=== PATIENT | female | born 1965 | race Caucasian/White ===

== ENCOUNTER 2020-08-23 10:06 | Outpatient (REF) | payer OTHER, SELFPAY ==
[2020-08-23 11:08] LABS: MANUAL DIFF FLAG NO
[2020-08-23 11:15] LABS: Basophils Percent Auto 0.5 % (0-2); Eosinophils Absolute Auto 0.1 X10*3/uL (0.0-0.4); Eosinophils Percent Auto 1.4 % (0-4); Hemoglobin 13.1 g/dl (12.0-16.0); Imm Gran Abs Auto 0.01 X10*3/uL (0.00-0.03); Imm Gran Pct Auto 0.2 % (0.0-0.4); Lymphocytes Absolute Auto 2.1 X10*3/uL (1.2-4.9); Lymphocytes Percent Auto 35.6 % (20-40); Mean Corpuscular HGB Conc 32.8 g/dl (31.0-35.0); Mean Corpuscular Hemoglobin 31.2 pg (27.0-33.0); Mean Corpuscular Volume 95.2 fL (80-98); Mean Platelet Volume 10.7 fL (9.4-12.3); Monocytes Absolute Auto 0.6 X10*3/uL (0.1-1.2); Monocytes Percent Auto 9.6 % (2-11); Neutrophils Absolute Auto 3.1 X10*3/uL (2.0-8.3); Neutrophils Percent Auto 52.7 % (45-73); Platelet Count 229 X10*3/uL (160-400); Red Cell Distribution Width 12.6 % (11.0-16.0); White Blood Count 5.8 X10*3/uL (4.8-10.8)
[2020-08-23 12:01] LABS: Alanine Aminotransferase 20 U/L (0-31); Anion Gap 12 (12-20); Aspartate Amino Transferase 21 U/L (5-31); Blood Urea Nitrogen 22 mg/dL (9-16); Calcium 8.9 mg/dL (8.4-10.2); Carbon Dioxide 28 mmol/L (22-29); Chloride 106 mmol/L (96-108); Cholesterol 190 mg/dL; Estimated Glomerular Filt Rate > 60; Glucose Fasting 86 mg/dL (60-99); HDL Cholesterol 70 mg/dL; LDL Cholesterol Calculated 110 mg/dl; Potassium 4.6 mmol/L (3.3-5.1); Sodium 141 mmol/L (135-145); TSH reflex Free T4 0.83 uIU/mL (0.32-4.0); Triglycerides 54 mg/dL; Vitamin D 25-OH Total 46.2 ng/mL (>30)
== END 2020-08-23 10:07 | disposition home or self-care (01) ==
LOC: HO.HMGCLDS 10:06
PROVIDERS: PCP Internal Medicine; Visit Provider Internal Medicine
DX: Z00.01 Encounter for general adult medical examination with abnormal findings (principal); I10 Essential (primary) hypertension
CPT/HCPCS: 36415; 80048; 80061; 82306; 84443; 84450; 84460; 85025

== ENCOUNTER 2021-01-28 08:19 | Outpatient (REF) | payer OTHER, SELFPAY ==
--- NOTE | ~2021-01-28 | MM_ITS ---
EXAMINATION: MM SCREENING DIGITAL BREAST TOMOSYNTHESIS, BILATERAL CLINICAL INFORMATION: Due for yearly. 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 Clear margins. 2 sentinel nodes negative for metastatic carcinoma. Routine screening per referrer request. COMPARISON: Mammography: 01/23/2020, 11/10/2018, 09/14/2018, 09/07/2018, 09/02/2018, 09/01/2017 TECHNIQUE: Digital breast tomosynthesis is performed in both the craniocaudal and mediolateral oblique views along with computer detection (CAD). Synthesized 2D images are generated from the tomosynthesis. Additional right MLO and bilateral exaggerated CC views are provided. FINDINGS: The breasts are heterogeneously dense, which may obscure small masses (ACR BI-RADS breast composition Category c). Minor post therapy changes right breast with reduced breast size and scarring are stable. The breasts show no interval mass or architectural abnormality. Again, there are multiple left breast calcifications of similar number and distribution. The remaining right breast calcifications are also stable. The axilla and skin contours are unremarkable. No significant changes. MM/MM tomosynthesis screening BI IMPRESSION: There are no significant changes from prior study. Post therapy changes right breast. ASSESSMENT: BI-RADS 2: Benign RECOMMENDATION: Routine annual mammography screening. This patient's information was entered into a reminder system with a target due date for their next mammogram.
== END 2021-01-28 08:20 | disposition home or self-care (01) ==
LOC: HO.MAMMO 08:19
PROVIDERS: Visit Provider Internal Medicine Medical Oncology
DX: Z12.31 Encounter for screening mammogram for malignant neoplasm of breast (principal)
CPT/HCPCS: 77063; 77067

== ENCOUNTER → 2021-12-23 13:50 | Outpatient (BNVA) | payer OTHER, SELFPAY | PROVIDERS: PCP Internal Medicine; Visit Provider Nurse Practitioner Family | DX: Z01.818 Encounter for other preprocedural examination (principal) | CPT/HCPCS: 99202 ==

== ENCOUNTER 2022-01-29 09:26 | Outpatient (REF) | payer OTHER, SELFPAY ==
--- NOTE | ~2022-01-29 | MM_ITS ---
EXAMINATION: MM SCREENING DIGITAL BREAST TOMOSYNTHESIS, BILATERAL CLINICAL INFORMATION: Screening. Asymptomatic. Right lumpectomy for high-grade DCIS, 11/10/2018. COMPARISON: Mammography: 01/28/2021, 01/23/2020, 11/10/2018, 09/14/2018, 09/07/2018, 09/02/2018 TECHNIQUE: Digital breast tomosynthesis is performed in both the craniocaudal and mediolateral oblique views along with computer-aided detection (CAD). Synthesized 2D images are generated from the tomosynthesis. Additional right CC view is provided. FINDINGS: The breasts are heterogeneously dense, which may obscure small masses (ACR BI-RADS breast composition Category c). There are minor post therapy changes again noted on the right similar to prior study. Neither breast shows interval mass or architectural abnormality or developing density. There are no abnormal calcifications. Residual calcifications on right and similar appearing calcifications left predominantly regional upper outer are similar to prior studies. The axilla are unremarkable. No significant changes. MM/MM tomosynthesis screening BI IMPRESSION: No mammographic evidence of malignancy. ASSESSMENT: BI-RADS 2: Benign RECOMMENDATION: Routine annual mammography screening. This patient's information was entered into a reminder system with a target due date for their next mammogram.
== END 2022-01-29 09:27 | disposition home or self-care (01) ==
LOC: HO.MAMMO 09:26
PROVIDERS: PCP Internal Medicine; Visit Provider Internal Medicine
DX: Z12.31 Encounter for screening mammogram for malignant neoplasm of breast (principal)
CPT/HCPCS: 77063; 77067

== ENCOUNTER 2022-07-16 07:11 | Day surgery (SDC) | payer OTHER, SELFPAY ==
--- NOTE | 2022-07-15 13:13 | HO.ANESPROP2 ---
Documented by User: Jenny Hale NP 07/15/22 13:14 HPI - Anesthesia Eval Consult details Narrative: 57yo F for Colonoscopy PMF Active Problems Active Problems: All Active Problems (Updated 02/12/22 @ 17:[address] [facility]) Chronic dryness of both eyes (Acute) Family history of colon cancer in father (Acute) Allergic rhinitis (Acute) Allergies (Acute) Serous otitis media (Acute) Ear pain (Acute) Right otitis media (Acute) Ductal carcinoma in situ (DCIS) of right breast (Acute) Past Medical History Medical History (Updated 02/12/22 @ 17:[address] [facility]) Allergic rhinitis Ductal carcinoma in situ (DCIS) of right breast Family history of colon cancer in father Family History Family History Father History of CVA (cerebrovascular accident) Stroke Mother No problems noted. Maternal Grandmother Breast cancer Maternal Aunt Breast cancer Brother No problems noted. Brother No problems noted. Brother No problems noted. Sister No problems noted. Surgical History Surgical History History of bunionectomy History of colonoscopy History of eye surgery History of hernia repair History of lumpectomy of left breast History of tonsillectomy Status post dilation and curettage Social History Social History Housing: House Alcohol intake: current Alcohol intake frequency: holidays/special occasions only Patient Tobacco Use Status: Former Tobacco user e-Cigarette/Vaping Use: Never Used Second Hand Smoke Exposure: No Are you DNR?: No Advance Directives: No Advance Directives Information Provided: Yes Nutrition Risks: No Nutritional Risk service: Yes Current occupational status: employed and retired Current occupation: [employer] Cognitive needs: No Hearing needs: No Vision needs: Yes (reading glasses) Meds Allergies Allergy/AdvReac Type Severity Reaction Status Date / Time Penicillins [PENICILLINS] Allergy Severe ANAPHYLAXIS Verified 07/13/22 13:21 bacitracin [From NEOSPORIN] Allergy Intermediate RASH Verified 07/13/22 13:21 benzalkonium chloride Allergy Intermediate RASH Verified 07/13/22 13:21 [From NEOSPORIN] gramicidin D [From NEOSPORIN] Allergy Intermediate RASH Verified 07/13/22 13:21 polymyxin B [From NEOSPORIN] Allergy Intermediate RASH Verified 07/13/22 13:21 strawberry [STRAWBERRY] Allergy Intermediate LIP Verified 07/13/22 13:21 TINGLING, HIVES tea tree [TEA TREE] Allergy Intermediate RASH Verified 07/13/22 13:21 cephalexin [Keflex] Allergy Unknown dizziness Verified 07/13/22 13:21 Neosporin Allergy Unknown rash/bumps Verified 07/13/22 13:21 lactose [LACTOSE] AdvReac Severe DIARRHEA Verified 07/13/22 13:21 BANDAIDS Allergy Severe RASH Uncoded 07/13/22 13:21 Environmental Allergy Mild Cough,sneezing Uncoded 07/13/22 13:21 runny nose Home Medications Medication Instructions Recorded Confirmed Last Taken Type tamoxifen 20 mg tablet 20 mg PO DAILY 06/04/20 07/13/22 07/15/22 History fexofenadine 30 mg tablet 1 mg PO DAILY 07/16/22 07/16/22 07/15/22 History Exam Exam Date and Time: July 15, 2022 1313 Assessment and Plan Assessment Anesthesia Assessment: Chart Reviewed Documented by User: Megan Anne MD 07/16/22 08:09 [facility] Past Medical History Medical History (Updated 02/12/22 @ 17:[address] [facility]) Allergic rhinitis Ductal carcinoma in situ (DCIS) of right breast Family history of colon cancer in father Family History Family History Father History of CVA (cerebrovascular accident) Stroke Mother No problems noted. Maternal Grandmother Breast cancer Maternal Aunt Breast cancer Brother No problems noted. Brother No problems noted. Brother No problems noted. Sister No problems noted. Family history of problems with anesthesia: No Surgical History Surgical History History of bunionectomy History of colonoscopy History of eye surgery History of hernia repair History of lumpectomy of left breast History of tonsillectomy Status post dilation and curettage History of Problems with Anesthesia: No Social History Social History Housing: House Alcohol intake: current Alcohol intake frequency: holidays/special occasions only Patient Tobacco Use Status: Former Tobacco user e-Cigarette/Vaping Use: Never Used Second Hand Smoke Exposure: No Are you DNR?: No Advance Directives: No Advance Directives Information Provided: Yes Nutrition Risks: No Nutritional Risk service: Yes Current occupational status: employed and retired Current occupation: [employer] Cognitive needs: No Hearing needs: No Vision needs: Yes (reading glasses) Meds Allergies Allergy/AdvReac Type Severity Reaction Status Date / Time Penicillins [PENICILLINS] Allergy Severe ANAPHYLAXIS Verified 07/13/22 13:21 bacitracin [From NEOSPORIN] Allergy Intermediate RASH Verified 07/13/22 13:21 benzalkonium chloride Allergy Intermediate RASH Verified 07/13/22 13:21 [From NEOSPORIN] gramicidin D [From NEOSPORIN] Allergy Intermediate RASH Verified 07/13/22 13:21 polymyxin B [From NEOSPORIN] Allergy Intermediate RASH Verified 07/13/22 13:21 strawberry [STRAWBERRY] Allergy Intermediate LIP Verified 07/13/22 13:21 TINGLING, HIVES tea tree [TEA TREE] Allergy Intermediate RASH Verified 07/13/22 13:21 cephalexin [Keflex] Allergy Unknown dizziness Verified 07/13/22 13:21 Neosporin Allergy Unknown rash/bumps Verified 07/13/22 13:21 lactose [LACTOSE] AdvReac Severe DIARRHEA Verified 07/13/22 13:21 BANDAIDS Allergy Severe RASH Uncoded 07/13/22 13:21 Environmental Allergy Mild Cough,sneezing Uncoded 07/13/22 13:21 runny nose Home Medications Medication Instructions Recorded Confirmed Last Taken Type tamoxifen 20 mg tablet 20 mg PO DAILY 06/04/20 07/13/22 07/15/22 History fexofenadine 30 mg tablet 1 mg PO DAILY 07/16/22 07/16/22 07/15/22 History Exam Airway Mallampati Class: II TM Dist: >3cm Neck ROM: Full Heart: rr Lungs: cta Assessment and Plan Final Anesthetic Review Family History of Problems with Anesthesia: No History of Problems with Anesthesia: No NPO: Yes ASA Class: I and II Final Preanesthetic Review: No Changes in Pt Med Stat, Meds/Allgs Chart Reviewed, Consent Obtained/Reviewed and Anes Risks/Benef Reviewed Patient Risk: Low Procedure Risk: Low Anesthetic Plan Anesthetic Plan: MAC: and Agree w/ Assess. and Plan
[2022-07-16 07:09] VITALS: BMI 21.4
[2022-07-16 07:13] VITALS: BP 106/68; PULSE 74; RESP 18; TEMP 36.6; O2SAT 98
[2022-07-16] MEDS: Lactated Ringers 1,000 ML 100 ML IVCONT (07:39)
--- NOTE | 2022-07-16 08:37 | MHC.SHP ---
Pre-Procedural Eval Section A Date of Service: 07/16/22 Section B Chief Complaint: screening Details of Present Illness: siblings with colon polyps Relevant Family History (Specify if Yes): Yes Relevant Social History: None Present Medications: see Short Stay Collaborative assessment Medical History: Significant History (Allergic rhinitis Ductal carcinoma in situ (DCIS) of right breast) History of Previous Operations: Relevant previous surgery/procedure and date(s) (History of bunionectomy History of colonoscopy History of eye surgery History of hernia repair History of lumpectomy of left breast History of tonsillectomy Status post dilation and curettage) Allergies: Allergies Allergy/AdvReac Type Severity Reaction Status Date / Time Penicillins [PENICILLINS] Allergy Severe ANAPHYLAXIS Verified 07/13/22 13:21 bacitracin [From NEOSPORIN] Allergy Intermediate RASH Verified 07/13/22 13:21 benzalkonium chloride Allergy Intermediate RASH Verified 07/13/22 13:21 [From NEOSPORIN] gramicidin D [From NEOSPORIN] Allergy Intermediate RASH Verified 07/13/22 13:21 polymyxin B [From NEOSPORIN] Allergy Intermediate RASH Verified 07/13/22 13:21 strawberry [STRAWBERRY] Allergy Intermediate LIP Verified 07/13/22 13:21 TINGLING, HIVES tea tree [TEA TREE] Allergy Intermediate RASH Verified 07/13/22 13:21 cephalexin [Keflex] Allergy Unknown dizziness Verified 07/13/22 13:21 Neosporin Allergy Unknown rash/bumps Verified 07/13/22 13:21 lactose [LACTOSE] AdvReac Severe DIARRHEA Verified 07/13/22 13:21 BANDAIDS Allergy Severe RASH Uncoded 07/13/22 13:21 Environmental Allergy Mild Cough,sneezing Uncoded 07/13/22 13:21 runny nose Review of Systems Sugical H&P ROS: Negative: Constitution, Cardiovascular, Respiratory, Neurological, Psychiatric, Hem-Onc, Allergic/Immunologic, Gastrointestinal, Genitourinary, Musculoskeletal, Integumentary, Endocrine and Eyes/Ears/Nose/Throat Exam Surgical H&P Exam: Normal: HEENT, Normal: Heart, Normal: Lungs, Normal: Extremities, Normal: Abdomen, Normal: Skin and Normal: Neurological Plan Diagnosis/Plan: Unchanged I have reviewed the history and physical and performed a pertinent physical examination on my patient. No changes have occurred unless specified. Time Spent With Patient Time: Total time managing care of this patient today ____ minutes.
--- NOTE | 2022-07-16 08:47 | P.OP_ITS ---
Operative Note Operative Note Date of Service: 07/16/22 Narrative: Operative Information Procedure Description: Colonoscopy Indication: screening Anesthesia: MAC COLONOSCOPY Instrument: Olympus variable stiffness pediatric scope 190L Colonoscopy Monitoring: Vital signs and clinical assessment, continuous EKG monitoring, Pulse oximetry, Carbon Dioxide monitoring and blood pressure monitoring were done throughout the procedure. Colon withdrawal time was 9 minutes. Procedure: The patient was placed in the left lateral decubitis position and pre-procedure medications were administered. After a digital rectal examination of the ano-rectum, the video colonoscope was inserted into the rectum and advanced through the colon to the cecum/TI. The colonoscope was slowly withdrawn in a retrograde panoramic fashion and the colon mucosa was carefully examined including a retroflexed view of the rectum. Findings and interventions are described below. Procedure Difficulty: moderate due to redundant colon, tortuous Findings: Terminal Ileum-normal Right sided colon retroflexion- normal Cecum:normal Ascending Colon: normal Transverse Colon -normal Descending Colon:normal Sigmoid Colon: normal Rectum: Retroflexion with small internal hemorrhoids, grade I Anorectum - normal Colon preparation: [place] Bowel Preparation Scale Right colon; 2 Transverse colon: 3 Left colon; 3 (0 = Unprepared colon segment with mucosa not seen due to solid stool that cannot be cleared. 1 = Portion of mucosa of the colon segment seen, but other areas of the colon segment not well seen due to staining, residual stool and/or opaque liquid. 2 = Minor amount of residual staining, small fragments of stool and/or opaque liquid, but mucosa of colon segment seen well. 3 = Entire mucosa of colon segment seen well with no residual staining, small fragments of stool or opaque liquid) Impression and Post Procedure Diagnosis: internal hemorrhoids tortuous slighty redundant colon Plan: High fiber diet leaflet Avoid straining at stool, epsom salts and sitz bath, anusol supps or cream Repeat Colonoscopy in 10 years or earlier if clinically indicated Above findings were reviewed with the patient and relevant handouts were provided if indicated.
[2022-07-16 09:18] VITALS: BP 88/49; PULSE 64; RESP 16; TEMP 36.4; O2SAT 100
[2022-07-16 09:23] VITALS: BP 89/55
[2022-07-16 09:33] VITALS: BP 93/53; PULSE 65; RESP 16; O2SAT 100
[2022-07-16 09:48] VITALS: BP 100/58; PULSE 58; RESP 18; TEMP 36.8; O2SAT 99
== END 2022-07-16 10:20 ==
LOC: HO.SSS 07:11
PROVIDERS: PCP Internal Medicine; Visit Provider Internal Medicine Gastroenterology
PROC: 0DJD8ZZ Inspection of Lower Intestinal Tract, Via Natural or Artificial Opening Endoscopic (ICD-10-PCS; CPT 45378; principal; 2022-07-16 08:20)
DX: Z12.11 Encounter for screening for malignant neoplasm of colon (principal); Z83.71 Family history of colonic polyps; K64.0 First degree hemorrhoids; D05.11 Intraductal carcinoma in situ of right breast; J30.9 Allergic rhinitis, unspecified; Z79.899 Other long term (current) drug therapy; Z79.810 Long term (current) use of selective estrogen receptor modulators (SERMs); Z88.0 Allergy status to penicillin; Z88.1 Allergy status to other antibiotic agents; Z91.040 Latex allergy status; Z87.891 Personal history of nicotine dependence
CPT/HCPCS: 45378; J2405

== ENCOUNTER → 2022-07-29 10:50 | Outpatient (BNVA) | payer OTHER, SELFPAY | PROVIDERS: PCP Internal Medicine; Visit Provider Nurse Practitioner Family | DX: Z98.890 Other specified postprocedural states (principal) | CPT/HCPCS: 99212 ==

== ENCOUNTER 2022-08-28 08:03 | Outpatient (AMB) | payer OTHER, SELFPAY ==
[2022-08-28 08:07] VITALS: BP 94/60; PULSE 76; O2SAT 100; BMI 22.3
--- NOTE | 2022-08-28 08:07 | A.OFFPC_ITS ---
Vital Signs 08/28/22 08:07 Height 5 ft 4 in Weight 130 lb BMI 22.3 BP 94/60 Blood Pressure Location Lt brachial Position Sitting Pulse 76 Pulse Source Pulse Oximeter Pulse Oximetry (%) 100 Oxygen Delivery Method Room Air Intake Visit Reasons: Annual PE Intake Note: Pt is here today for PE Allergies Penicillins [PENICILLINS] Allergy (Severe, Verified 08/28/22 08:15) ANAPHYLAXIS bacitracin [From NEOSPORIN] Allergy (Intermediate, Verified 08/28/22 08:15) RASH benzalkonium chloride [From NEOSPORIN] Allergy (Intermediate, Verified 08/28/22 08:15) RASH gramicidin D [From NEOSPORIN] Allergy (Intermediate, Verified 08/28/22 08:15) RASH polymyxin B [From NEOSPORIN] Allergy (Intermediate, Verified 08/28/22 08:15) RASH strawberry [STRAWBERRY] Allergy (Intermediate, Verified 08/28/22 08:15) LIP TINGLING, HIVES tea tree [TEA TREE] Allergy (Intermediate, Verified 08/28/22 08:15) RASH cephalexin [Keflex] Allergy (Unknown, Verified 08/28/22 08:15) dizziness neomycin [From Neosporin ([id number])] Allergy (Unknown, Verified 08/28/22 08:15) Rash, bumps lactose [LACTOSE] Adverse Reaction (Severe, Verified 08/28/22 08:15) DIARRHEA BANDAIDS Allergy (Severe, Uncoded 08/28/22 08:15) RASH Environmental Allergy (Mild, Uncoded 08/28/22 08:15) Cough,sneezing runny nose Medication List - Last Reconciled 08/28/22 by Juliette Altman MD cholecalciferol (vitamin D3) 25 mcg PO DAILY fexofenadine 1 mg PO DAILY meloxicam 15 mg PO DAILY multivitamin 1 tab PO DAILY tamoxifen 20 mg PO DAILY zolpidem 10 mg PO BEDTIME PRN Tobacco use date assessed: 08/28/22 HPI Annual PE HPI Details 57 year-old lady with history of DCIS right breast, 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 She is up-to-date with her screening mammogram, due again in January 2023, up-to-date with her cervical cancer screening gets yearly with Dr. Yaya Estrada, last done 01/2022. She had a repeat screening colonoscopy done 07/16/[address] Rivera, which showed normal findings,? but due to positive family history in first-degree relative, she is due for have it repeated in 7 years.? ?She had fasting labs done at the [facility] 06/04/2022 showed normal fasting glucose, normal fasting lipids normal hemoglobin with a slightly low hematocrit, and normal normal UA. She had a bone density scan done 08/19/2021 which showed normal findings Was recently seen at [facility] by Dr. 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 Up-to-date with all her vaccinations. [facility] Medical History (Updated 08/28/22 @ 09:11 by Juliette Altman MD) Allergic rhinitis Allergies Arthritis of hand Ductal carcinoma in situ (DCIS) of right breast History of ductal carcinoma in situ of breast Serous otitis media Surgical History (Updated 08/28/22 @ 09:00 by Juliette Altman MD) History of bunionectomy History of colonoscopy History of eye surgery History of hernia repair History of lumpectomy of left breast History of tonsillectomy Hx of LASIK Status post dilation and curettage Family History Father History of CVA (cerebrovascular accident) Stroke Mother No problems noted. Maternal Grandmother Breast cancer Maternal Aunt Breast cancer Brother No problems noted. Brother No problems noted. Brother No problems noted. Sister No problems noted. Social History Housing: House Alcohol intake: current Alcohol intake frequency: holidays/special occasions only Patient Tobacco Use Status: Former Tobacco user e-Cigarette/Vaping Use: Never Used Second Hand Smoke Exposure: No service: Yes Current occupational status: employed and retired Current occupation: [employer] Cognitive needs: No Hearing needs: No Vision needs: Yes (reading glasses) Questionnaire PHQ-9 Over the last 2 weeks, how often have you been bothered by any of the following problems? 1. Little interest or pleasure in doing things: not at all 2. Feeling down, depressed, or hopeless: not at all 3. Trouble falling or staying asleep, or sleeping too much: several days 4. Feeling tired or having little energy: not at all 5. Poor appetite or overeating: not at all 6. Feeling bad about yourself - or that you are a failure or have let yourself or your family down: not at all 7. Trouble concentrating on things, such as reading the newspaper or watching television: not at all 8. Moving or speaking so slowly that other people could have noticed. Or the opposite - being so fidgety or restless that you have been moving around a lot more than usual: not at all 9. Thoughts that you would be better off or of hurting yourself in some way: not at all Total score: 1 Depression Screening Interpretation: Negative [id number] - PHQ-9 Billing: Yes Source: Developed by Drs. Steven Santiago, Bell Keating, Rowdy Cuello and colleagues, with an educational emma from [employer]. Thrive Questionnaire Declines Thrive assessment: No Date Thrive assessed: 08/28/22 I am a: Patient What is your living situation today?: I have a steady place to live Within the past 12 months, did the food you bought not last and you didn't have the money to get more?: Never true Within the past 12 months, did you worry whether your food would run out before you got money to buy more?: Never true Do you have trouble paying for medicines?: No Do you have trouble getting transportation to medical appointments?: No Do you have trouble paying your heating and electricity bill?: No Do you have trouble taking care of your child, family member or friend?: No Do you have trouble with day-to-day activities such as bathing, preparing meals, shopping, managing finances, etc.?: No Are you currently unemployed and looking for a job?: No Are you interested in more education?: No AUDIT C Alcohol Use Questionnaire (AUDIT-C) 1. How often do you have a drink containing alcohol?: Monthly or less 2. How many drinks containing alcohol do you have on a typical day when you are drinking?: 1 or 2 3. How often do you have six or more drinks on one occasion?: Never Total Score: 1 BERNY-7 AMB Questionnaire BERNY-7 Date BERNY - 7 assessed: 08/28/22 Feeling nervous, anxious, or on edge: 0 = Not at all Not being able to stop or control worryin = Not at all Worrying too much about different things: 0 = Not at all Trouble relaxin = Several days Being so restless that it is hard to sit still: 0 = Not at all Becoming easily annoyed or irritable: 1 = Several days Feeling afraid as if something awful might happen: 0 = Not at all Total BERNY-7 score (0-4 normal; 5-9 mild; 10-14 moderate; 15-21 severe): 2 Source: Developed by Drs. Steven Santiago, Bell Keating, Rowdy Cuello and colleagues, with an educational emma from [employer]. BERNY-7 Assessment Billing BERNY-7 Assessment Tool: BRENY-7 Assessment 18784 Review of Systems Const Denies chills, Denies fatigue, Denies fever(s), Denies headache(s) and Denies weakness Eyes Reports no additional complaints and Denies change in vision ENT Denies vertigo, Denies dizziness, Denies ear discharge, Denies otalgia and Denies headache(s) Card Denies chest pain, Denies lightheadedness, Denies dyspnea and Denies other (Palpitations) Resp Denies cough, Denies dyspnea, Denies wheezing and Denies other ( shortness of breath) GI Denies abdominal pain, Denies melena, Denies bloating, Denies hematochezia, Denies dyspepsia and Denies heartburn Reports change in libido, Denies difficulty voiding, Denies genital pruritis, Reports hot flashes, Denies urinary incontinence, Denies urinary hesitancy, Denies urinary urgency and Reports vaginal dryness Musc Denies back pain, Denies joint swelling, Denies numbness and Denies tingling Skin/Breast Reports breast pain (sharp pain around =left nipple inner upper outer , ? trauma), Denies dry skin and Denies rash Neuro Denies vertigo, Denies dizziness, Denies headache(s), Denies numbness, Denies tingling, Denies paresthesias and Denies weakness Psych Denies anxiety, Reports change in libido and Denies depression Endo Reports change in libido and Denies fatigue Phil/Lymph Denies easy bleeding and Denies easy bruising Aller/Immun Denies wheezing Physical exam (Primary Care) Vital Signs: Last Vital Signs Pulse 76 08/28/22 08:07 BP 94/60 08/28/22 08:07 Pulse Ox 100 08/28/22 08:07 Oxygen Delivery Method Room Air 08/28/22 08:07 BMI result Body Mass Index 22.3 Tobacco/Smoking Status: Tobacco use Status Tobacco use date assessed 08/28/22 08/28/22 08:13 Patient Tobacco Use Status Former Tobacco user 08/28/22 08:13 e-Cigarette/Vaping Use Never Used 08/28/22 08:13 PHQ-9: PHQ-9 Score PHQ-9: Total score 1 08/28/22 09:04 Depression Screening Interpretation: Negative Thrive Assessment: Date of Thrive Assessment Date Thrive assessed 08/28/22 08/28/22 08:16 Const General: healthy appearing, comfortable and no acute distress Nutritional Appearance: average body habitus Orientation/consciousness: patient oriented x3 Limitations: no limitations HENMT Head: Yes normocephalic and Yes atraumatic Ears: hearing grossly normal bilaterally, TM's normal bilaterally and EAC's normal General nose exam: Normal external nose present Face and sinus: Yes face symmetric Mouth: Normal oral and palatal mucosa present and moist mucous membranes Eyes General: appearance normal, both eyes and all related structures Neck Neck: Yes full ROM, Yes no lymphadenopathy and Yes supple Thyroid: Thyroid normal Chest Other: Had slight tenderness on palpation over the upper outer aspect of left areola, no definite lump palpated, no nipple discharge Chest palpation & inspection: normal inspection of the chest Resp Effort & Inspection: normal respiratory effort and able to speak in complete sentences Auscultation: clear to auscultation bilaterally Cardio Rate: regular rate Rhythm: regular rhythm Heart sounds: S1 normal heart sound present and S2 normal heart sound present GI Inspection: Yes normal to inspection Auscultation: normal bowel sounds Other: sees [facility] for yearly pap /pelvic exam General: Yes no CVA tenderness Back/Spine/Pelvis Back: no CVA tenderness and No back tenderness Skin General skin exam: no rashes or lesions noted Neuro General: patient oriented x3, gait normal, tone normal, moves all extremities, no focal motor deficits and CN's II-XI intact bilaterally Extrem General: Yes full ROM, Yes no joint enlargement and Yes no pedal edema Psych Appearance: grossly normal and well kempt Mental Status: mental status grossly normal Speech and movement: Normal speech and movement present Affect: normal affect Attitude: cooperative Thought process: Normal thought process present Thought content: Normal thought content present Assessment and Plan Assessment & Plan (1) Arthritis of hand: Comment: bilateral STT and 1st CMC arthritis- ff'd by Dr Morejon at [facility] Code(s): M19.049 - Primary osteoarthritis, unspecified hand (2) History of ductal carcinoma in situ of breast: Code(s): Z86.000 - Personal history of in-situ neoplasm of breast (3) Annual visit for general adult medical examination with abnormal findings: Code(s): Z00.01 - Encounter for general adult medical examination with abnormal findings (4) Breast pain, left: Code(s): N64.4 - Mastodynia Coding Level of Care Code Est Pt Prev Care 40-64y([id number]) Diagnoses Arthritis of hand M19.049 History of ductal carcinoma in situ of breast Z86.000 Annual visit for general adult medical examination with abnormal findings Z00.01 Breast pain, left N64.4 Additional Codes BERNY-7 Assessment Billing - BERNY-7 Assessment Tool: BERNY-7 Assessment 40239 ([id number])
== END 2022-08-28 09:42 | disposition home or self-care (01) ==
LOC: HO.HMGC 08:04
PROVIDERS: PCP Internal Medicine; Visit Provider Internal Medicine
DX: M19.049 Primary osteoarthritis, unspecified hand (principal); Z86.000 Personal history of in-situ neoplasm of breast; Z00.01 Encounter for general adult medical examination with abnormal findings; N64.4 Mastodynia
CPT/HCPCS: 99499

== ENCOUNTER 2023-02-03 09:19 | Outpatient (REF) | payer OTHER, SELFPAY ==
--- NOTE | ~2023-02-03 | MM_ITS ---
EXAMINATION: MM SCREENING DIGITAL BREAST TOMOSYNTHESIS, BILATERAL CLINICAL INFORMATION: Screening. Asymptomatic. Patient has a history of right breast DCIS diagnosed in 2019. COMPARISON: Mammography: This study is compared with prior exams dating back to 2019. TECHNIQUE: Digital breast tomosynthesis is performed in both the craniocaudal and mediolateral oblique views along with computer-aided detection (CAD). Synthesized 2D images are generated from the tomosynthesis. FINDINGS: The breasts are heterogeneously dense, which may obscure small masses (ACR BI-RADS breast composition Category c). There are no significant masses, abnormal calcifications, or other abnormalities. There are bilateral, unchanged, probably T8, benign calcifications in each breast. MM/MM tomosynthesis screening BI IMPRESSION: No mammographic evidence of malignancy. ASSESSMENT: BI-RADS BI-RADS 2 - Benign Findings RECOMMENDATION: Routine annual mammography screening. 1 year F/U This examination should not preclude the clinical evaluation of a suspicious palpable abnormality. This patient's information was entered into a reminder system with a target due date for their next mammogram.
== END 2023-02-03 09:20 | disposition home or self-care (01) ==
LOC: HO.MAMMO 09:19
PROVIDERS: PCP Internal Medicine; Visit Provider Internal Medicine
DX: Z12.31 Encounter for screening mammogram for malignant neoplasm of breast (principal)
CPT/HCPCS: 77063; 77067

== ENCOUNTER → 2023-02-03 09:30 | Outpatient (BNV) | payer OTHER, SELFPAY | PROVIDERS: PCP Internal Medicine; Visit Provider Radiology Diagnostic Radiology | DX: Z12.31 Encounter for screening mammogram for malignant neoplasm of breast (principal) | CPT/HCPCS: 77063; 77067 ==

== ENCOUNTER 2023-09-02 08:56 | Outpatient (AMB) | payer OTHER, SELFPAY ==
--- NOTE | 2023-09-02 08:59 | A.OFFPC_ITS ---
Vital Signs 09/02/23 09:19 Height 5 ft 4 in Weight 131 lb 8 oz BMI 22.6 BP 112/66 Blood Pressure Location Rt brachial Position Sitting Pulse 74 Pulse Source Pulse Oximeter Pulse Oximetry (%) 98 Oxygen Delivery Method Room Air Intake Visit Reasons: PE Intake Note: Pt is here today for her Annual Physical. Allergies Penicillins [PENICILLINS] Allergy (Severe, Verified 09/02/23 09:28) ANAPHYLAXIS bacitracin [From NEOSPORIN] Allergy (Intermediate, Verified 09/02/23 09:28) RASH benzalkonium chloride [From NEOSPORIN] Allergy (Intermediate, Verified 09/02/23 09:28) RASH gramicidin D [From NEOSPORIN] Allergy (Intermediate, Verified 09/02/23 09:28) RASH polymyxin B [From NEOSPORIN] Allergy (Intermediate, Verified 09/02/23 09:28) RASH strawberry [STRAWBERRY] Allergy (Intermediate, Verified 09/02/23 09:28) LIP TINGLING, HIVES tea tree [TEA TREE] Allergy (Intermediate, Verified 09/02/23 09:28) RASH cephalexin [Keflex] Allergy (Unknown, Verified 09/02/23 09:28) dizziness neomycin [From Neosporin ([id number])] Allergy (Unknown, Verified 09/02/23 09:28) Rash, bumps lactose [LACTOSE] Adverse Reaction (Severe, Verified 09/02/23 09:28) DIARRHEA BANDAIDS Allergy (Severe, Uncoded 09/02/23 09:28) RASH Environmental Allergy (Mild, Uncoded 09/02/23 09:28) Cough,sneezing runny nose Medication List - Last Reconciled 09/02/23 by Juliette Altman MD azelastine intranasal meloxicam 15 mg PO DAILY multivitamin 1 tab PO DAILY tamoxifen 20 mg PO DAILY varenicline (Tyrvaya) 1 spray intranasal Q12H zolpidem 10 mg PO BEDTIME PRN Tobacco use date assessed: 09/02/23 Dental Screening Dental Screen Date: 09/02/23 Did you have a dental visit in the last 12 months?: Yes Did you have a dental problem in the last 6 months where you did not have access to dental care?: No Was dental information given to patient?: Patient has dentist HPI PE HPI Details 58-year-old lady here today for physical exam. She history of ductal carcinoma in Situ of right breast, currently on tamoxifen, has allergic rhinitis, and chronic dry eyes as well as arthritis in both hands. She was given sample by her line dancer of Tryvaya nasal solution to spray in nostril every 12 hours for control of dry eye syndrome which has been helping She is updated with her screening colonoscopies, sees Dr. Rivera , in 2022, normal per patient due again in 2032. Sees Dr[address] Estrada for her Pap and pelvic exam, done in 2021 with normal findings, has hot flashes for which he takes nature's Way Estrosoy as recommended by her ditch digger, which has been helping. Has occasional problems sleeping takes zolpidem as needed. [facility] Medical History (Updated 09/03/23 @ 00:17 by Juliette Altman MD) Insomnia Vasomotor symptoms due to menopause History of ductal carcinoma in situ of breast Arthritis of hand Allergic rhinitis Allergies Serous otitis media Ductal carcinoma in situ (DCIS) of right breast Surgical History Hx of LASIK Status post dilation and curettage History of lumpectomy of left breast History of tonsillectomy History of bunionectomy History of hernia repair History of eye surgery History of colonoscopy Family History Father History of CVA (cerebrovascular accident) Stroke Mother No problems noted. Maternal Grandmother Breast cancer Maternal Aunt Breast cancer Brother No problems noted. Brother No problems noted. Brother No problems noted. Sister No problems noted. Social History Housing: House Alcohol intake: current Alcohol intake frequency: holidays/special occasions only Patient Tobacco Use Status: Former Tobacco user e-Cigarette/Vaping Use: Never Used Second Hand Smoke Exposure: No service: Yes Current occupational status: employed and retired Current occupation: [employer] Cognitive needs: No Hearing needs: No Vision needs: Yes (reading glasses) Questionnaire PHQ-9 Over the last 2 weeks, how often have you been bothered by any of the following problems? 1. Little interest or pleasure in doing things: not at all 2. Feeling down, depressed, or hopeless: not at all 3. Trouble falling or staying asleep, or sleeping too much: several days 4. Feeling tired or having little energy: several days 5. Poor appetite or overeating: not at all 6. Feeling bad about yourself - or that you are a failure or have let yourself or your family down: not at all 7. Trouble concentrating on things, such as reading the newspaper or watching television: not at all 8. Moving or speaking so slowly that other people could have noticed. Or the opposite - being so fidgety or restless that you have been moving around a lot more than usual: not at all 9. Thoughts that you would be better off or of hurting yourself in some way: not at all Total score: 2 Depression Screening Interpretation: Negative Depression Screening Done: Yes 58562 - PHQ-9 Billing: Yes Source: Developed by Drs. Steven Santiago, Bell Keating, Rowdy Cuello and colleagues, with an educational emma from [employer]. Thrive Questionnaire Date Thrive assessed: 09/02/23 I am a: Patient What is your living situation today?: I have a steady place to live Within the past 12 months, did the food you bought not last and you didn't have the money to get more?: Never true Within the past 12 months, did you worry whether your food would run out before you got money to buy more?: Never true Do you have trouble paying for medicines?: No Do you have trouble getting transportation to medical appointments?: No Do you have trouble paying your heating and electricity bill?: No Do you have trouble taking care of your child, family member or friend?: No Do you have trouble with day-to-day activities such as bathing, preparing meals, shopping, managing finances, etc.?: No Are you currently unemployed and looking for a job?: No Are you interested in more education?: No Please select the resources that you would like help with: None Currently or been in a relationship where the following occur: no concerns reported THRIVE Score: 0 AUDIT C Alcohol Use Questionnaire (AUDIT-C) 1. How often do you have a drink containing alcohol?: Monthly or less 2. How many drinks containing alcohol do you have on a typical day when you are drinking?: 1 or 2 3. How often do you have six or more drinks on one occasion?: Never Total Score: 1 Score Reviewed/Action Taken: Yes BERNY-7 AMB Questionnaire BERNY-7 Date BERNY - 7 assessed: 09/02/23 Feeling nervous, anxious, or on edge: 0 = Not at all Not being able to stop or control worryin = Not at all Worrying too much about different things: 0 = Not at all Trouble relaxin = Not at all Being so restless that it is hard to sit still: 0 = Not at all Becoming easily annoyed or irritable: 0 = Not at all Feeling afraid as if something awful might happen: 0 = Not at all Total BERNY-7 score (0-4 normal; 5-9 mild; 10-14 moderate; 15-21 severe): 0 Source: Developed by Drs. Steven Santiago, Bell Keating, Rowdy Cuello and colleagues, with an educational emma from [employer]. BERNY-7 Assessment Billing BERNY-7 Assessment Tool: BERNY-7 Assessment 60979 Review of Systems Const Denies chills, Denies fatigue, Denies fever(s), Denies headache(s) and Denies weakness Eyes Reports no additional complaints and Denies change in vision ENT Denies vertigo, Denies dizziness, Denies ear discharge, Denies otalgia and Denies headache(s) Card Denies chest pain, Denies lightheadedness, Denies dyspnea and Denies other (Palpitations) Resp Denies cough, Denies dyspnea, Denies wheezing and Denies other ( shortness of breath) GI Denies abdominal pain, Denies melena, Denies bloating, Denies hematochezia, Denies dyspepsia and Denies heartburn Reports change in libido, Denies difficulty voiding, Denies genital pruritis, Reports hot flashes, Denies urinary incontinence, Denies urinary hesitancy, Denies urinary urgency and Reports vaginal dryness Musc Reports back pain (Occasional), Reports arthralgias (On base of both thumbs, left more than the right), Denies joint swelling, Denies numbness and Denies t ingling Skin/Breast Denies breast pain, Denies breast mass, Denies dry skin and Denies rash Neuro Denies vertigo, Denies dizziness, Denies headache(s), Denies numbness, Denies tingling, Denies paresthesias and Denies weakness Psych Denies anxiety, Reports change in libido and Denies depression Endo Reports change in libido and Denies fatigue Phil/Lymph Denies easy bleeding and Denies easy bruising Aller/Immun Denies wheezing Physical exam (Primary Care) Vital Signs: Last Vital Signs Pulse 74 09/02/23 09:19 BP 112/66 09/02/23 09:19 Pulse Ox 98 09/02/23 09:19 Oxygen Delivery Method Room Air 09/02/23 09:19 BMI result Body Mass Index 22.6 Tobacco/Smoking Status: Tobacco use Status Tobacco use date assessed 09/02/23 09/02/23 09:00 Patient Tobacco Use Status Former Tobacco user 09/02/23 09:00 e-Cigarette/Vaping Use Never Used 09/02/23 09:00 PHQ-9: PHQ-9 Score PHQ-9: Total score 2 09/03/23 00:03 Depression Screening Interpretation: Negative Thrive Assessment: Date of Thrive Assessment Date Thrive assessed 09/02/23 09/02/23 09:00 Currently or been in a relationship where the following occur: no concerns reported Const General: healthy appearing, comfortable and no acute distress Nutritional Appearance: average body habitus Orientation/consciousness: patient oriented x3 Limitations: no limitations HENMT Head: Yes normocephalic and Yes atraumatic Ears: hearing grossly normal bilaterally, TM's normal bilaterally and EAC's normal General nose exam: Normal external nose present Face and sinus: Yes face symmetric Mouth: Normal oral and palatal mucosa present and moist mucous membranes Eyes General: appearance normal, both eyes and all related structures Neck Neck: Yes full ROM, Yes no lymphadenopathy and Yes supple Thyroid: Thyroid normal Chest Chest palpation & inspection: normal inspection of the chest Resp Effort & Inspection: normal respiratory effort and able to speak in complete sentences Auscultation: clear to auscultation bilaterally Cardio Rate: regular rate Rhythm: regular rhythm Heart sounds: S1 normal heart sound present and S2 normal heart sound present GI Inspection: Yes normal to inspection Auscultation: normal bowel sounds Other: sees [facility] for yearly pap /pelvic exam General: Yes no CVA tenderness Back/Spine/Pelvis Back: no CVA tenderness and No back tenderness Skin General skin exam: no rashes or lesions noted Neuro General: patient oriented x3, gait normal, tone normal, moves all extremities, no focal motor deficits and CN's II-XI intact bilaterally Extrem General: Yes full ROM, Yes no joint enlargement and Yes no pedal edema Psych Appearance: grossly normal and well kempt Mental Status: mental status grossly normal Speech and movement: Normal speech and movement present Affect: normal affect Attitude: cooperative Thought process: Normal thought process present Thought content: Normal thought content present Assessment and Plan Assessment & Plan (1) Annual visit for general adult medical examination with abnormal findings: Code(s): Z00.01 - Encounter for general adult medical examination with abnormal findings Plan: Reviewed recent fasting labs obtained at the [facility] which showed hemoglobin A1c at 5.4%, normal hemoglobin/hematocrit and white blood cell count, fasting glucose was 92 mg/dL, basic metabolic panel showed results within normal limits. Her fasting lipids showed a cholesterol of 202, triglycerides 59, LDL cholesterol 112 and HDL 78. Her vitamin B12 level however is elevated at 1027, TSH is normal at 1.47 vitamin-D is 53. Continued regular dental visit every 6 months and regular eye exams, at least every 2 years. Take adequate calcium in diet and vitamin-D 3 at 2000 IU per cap once a day, in addition to weight-bearing exercises to help maintain good muscle tone and weight control. Currently goes to [facility] for clinic where she gets regular followups and mammograms/breast MRI. She goes to her own OBGYN and is up-to-date with her cervical cancer screening and pelvic exam, last done [id number] which came back negative for intraepithelial lesion or malignancy with negative HPV. She had a normal bone density scan done 08/18/2021. (2) History of ductal carcinoma in situ of breast: Code(s): Z86.000 - Personal history of in-situ neoplasm of breast Plan: Followed at [facility] breast clinic, who has been ordering her routine mammogram. Currently on tamoxifen which she will be finished taking in December 2023 (3) Arthritis of hand: Comment: bilateral STT and 1st [facility] arthritis- ff'd by Dr Morejon at [facility] Code(s): M19.049 - Primary osteoarthritis, unspecified hand Plan: Advised to try massaging Voltaren gel or Aleve gel to affected area to 2 3 times a day as needed , and may take an occasional Tylenol arthritis 650 mg to take 1 tablet every 12 hours as needed for pain. Resting of joint advised (4) Chronic dryness of both eyes: Code(s): H04.123 - Dry eye syndrome of bilateral lacrimal glands Plan: Followed by Ophthalmology, given sample of Tryvaya nasal solution which she states has been helping control her dry eyes and (5) Allergic rhinitis: Code(s): J30.9 - Allergic rhinitis, unspecified Qualifiers: Allergic rhinitis seasonality: seasonal Allergic rhinitis trigger: unspecified Qualified Code(s): J30.2 - Other seasonal allergic rhinitis Plan: Use Azelastine nasal spray which has been helping. (6) Vasomotor symptoms due to menopause: Code(s): N95.1 - Menopausal and female climacteric states Plan: Takes Nature's Way Estrosoy supplement, which has been helping reduce her hot flashes (7) Insomnia: Code(s): G47.00 - Insomnia, unspecified Plan: Takes zolpidem, 10 mg per tablet usually would just take half a tablet as needed for episodes of insomnia. Refills Medications: New zolpidem 10 mg PO BEDTIME PRN 30 tabs 0RF insomnia Coding Level of Care Code Est Pt Prev Care 40-64y(51505) Diagnoses Annual visit for general adult medical examination with abnormal findings Z00.01 History of ductal carcinoma in situ of breast Z86.000 Arthritis of hand M19.049 Chronic dryness of both eyes H04.123 Seasonal allergic rhinitis, unspecified trigger J30.2 Allergic rhinitis seasonality: seasonal Allergic rhinitis trigger: unspecified Vasomotor symptoms due to menopause N95.1 Insomnia G47.00 Additional Codes BERNY-7 Assessment Billing - BERNY-7 Assessment Tool: BERNY-7 Assessment 39055 ([id number])
[2023-09-02 09:19] VITALS: BP 112/66; PULSE 74; O2SAT 98; BMI 22.6
== END 2023-09-02 10:07 | disposition home or self-care (01) ==
PROVIDERS: PCP Internal Medicine; Visit Provider Internal Medicine
DX: Z00.00 Encounter for general adult medical examination without abnormal findings (principal); Z86.000 Personal history of in-situ neoplasm of breast; M19.049 Primary osteoarthritis, unspecified hand; H04.123 Dry eye syndrome of bilateral lacrimal glands; J30.2 Other seasonal allergic rhinitis; N95.1 Menopausal and female climacteric states; G47.00 Insomnia, unspecified
CPT/HCPCS: 99396

== ENCOUNTER 2024-02-07 09:23 | Outpatient (REF) | payer OTHER, SELFPAY ==
--- NOTE | ~2024-02-07 | MM_ITS ---
EXAMINATION: MM SCREENING DIGITAL BREAST TOMOSYNTHESIS, BILATERAL CLINICAL INFORMATION: Screening. Asymptomatic. The patient has a history of right breast DCIS diagnosed in 2019. COMPARISON: Mammography: This study is compared with prior exams dating back to 2019. TECHNIQUE: Digital breast tomosynthesis is performed in both the craniocaudal and mediolateral oblique views along with computer-aided detection (CAD). Synthesized 2D images are generated from the tomosynthesis. FINDINGS: The breasts are heterogeneously dense, which may obscure small masses (ACR BI-RADS breast composition Category c). There are no significant masses, abnormal calcifications, or other abnormalities. Unchanged calcifications present in each breast. These are benign. MM/MM tomosynthesis screening BI IMPRESSION: No mammographic evidence of malignancy. ASSESSMENT: BI-RADS BI-RADS 2 - Benign Findings RECOMMENDATION: Routine annual mammography screening. 1 year F/U This examination should not preclude the clinical evaluation of a suspicious palpable abnormality. This patient's information was entered into a reminder system with a target due date for their next mammogram. Electronically signed by: Dasia Cannon MD 03/07/2024 06:26 AM EDT
== END 2024-02-07 09:24 | disposition home or self-care (01) ==
LOC: HO.MAMMO 09:23
PROVIDERS: PCP Internal Medicine; Referring Provider Internal Medicine Medical Oncology; Visit Provider Internal Medicine
DX: Z12.31 Encounter for screening mammogram for malignant neoplasm of breast (principal)
CPT/HCPCS: 77063; 77067

== ENCOUNTER → 2024-02-07 09:30 | Outpatient (BNV) | payer OTHER, SELFPAY | PROVIDERS: PCP Internal Medicine; Referring Provider Internal Medicine Medical Oncology; Visit Provider Radiology Diagnostic Radiology | DX: Z12.31 Encounter for screening mammogram for malignant neoplasm of breast (principal) | CPT/HCPCS: 77063; 77067 ==

== ENCOUNTER 2024-02-28 13:45 | Emergency (ER) | payer OTHER, SELFPAY ==
[2024-02-28 14:22] VITALS: BP 108/70; PULSE 65; RESP 16; TEMP 36.8; O2SAT 98; BMI 22.8
--- NOTE | 2024-02-28 14:23 | ED_ITS ---
HPI - General Adult General Chief complaint: General Medical Stated complaint: ingested fluid from icepack Time Seen by Provider: 02/28/24 17:21 Source: patient Mode of arrival: ambulatory Limitations: no limitations History of Present Illness ED Provider: Humera Carmichael PA-C HPI narrative: Patient is a 58 year old assigned female at with a history of breast CA presenting to the emergency department today after an accidental ingestion. Patient states that she was eating a salad out of a bowl that had a built in ice pack. Patient states that she noticed after eating the salad that the bowl had been leaking some of it's gel contents into her salad. Patient states that she has been having some stomach upset and waves of brain fog since she ate it. Patient states that she called poison control and they stated it was likely not poisonous. Patient denies any dizziness, lightheadedness, nausea, vomiting, fever, chills, blurry vision, double vision, loss of vision, chest pain, difficulty breathing, shortness of breath, back pain, night sweats, pain with urination, increased urinary frequency, increased urinary urgency, blood in her urine or stool, syncope or a near syncopal episode, recent trauma or falls, bowel incontinence, bladder incontinence, or any other complaints at this time. Relieving factors: none Exacerbating factors: none Associated symptoms: denies other symptoms Treatments prior to arrival: none Related Data Home Medications ?Medication ?Instructions ?Recorded ?Confirmed tamoxifen 20 mg tablet 20 mg PO DAILY 06/04/20 09/02/23 meloxicam 15 mg tablet 15 mg PO DAILY 08/28/22 09/02/23 multivitamin 1 tab PO DAILY 08/28/22 09/02/23 azelastine 137 mcg (0.1 %) nasal intranasal 09/02/23 09/02/23 spray varenicline 0.03 mg/spray nasal 1 spray intranasal Q12H 09/02/23 09/02/23 spray (Tyrvaya) Previous Rx's ?Medication ?Instructions ?Recorded zolpidem 10 mg tablet 10 mg PO BEDTIME PRN insomnia #30 09/02/23 tabs Allergies Allergy/AdvReac Type Severity Reaction Status Date / Time Penicillins [PENICILLINS] Allergy Severe ANAPHYLAXIS Verified 02/28/24 14:24 strawberry [STRAWBERRY] Allergy Intermediate LIP Verified 02/28/24 14:24 TINGLING, HIVES tea tree [TEA TREE] Allergy Intermediate RASH Verified 02/28/24 14:24 cephalexin [Keflex] Allergy Unknown dizziness Verified 02/28/24 14:24 neomycin Allergy Unknown Rash, bumps Verified 02/28/24 14:24 [From Neosporin ([id number])] lactose [LACTOSE] AdvReac Severe DIARRHEA Verified 02/28/24 14:24 BANDAIDS Allergy Severe RASH Uncoded 09/02/23 09:28 Environmental Allergy Mild Cough,sneezing Uncoded 09/02/23 09:28 runny nose Review of Systems 2 Constitutional: Constitutional: Reports no additional constitutional complaints, Denies chills, Denies fever(s) and Denies night sweats Eyes: Eyes: Reports no additional eye complaints, Denies blurry vision, Denies change in vision, Denies diplopia, Denies eye discharge, Denies loss of vision and Denies eye pain ENT: Denies dizziness Cardiovascular: Cardiovascular: Reports no additional cardiovascular complaints, Denies chest pain, Denies lightheadedness, Denies Loss of Consciousness and Denies dyspnea Respiratory: Respiratory: Reports no additional respiratory complaints and Denies dyspnea Gastrointestinal: Gastrointestinal: Reports no additional gastrointestinal complaints, Reports abdominal pain, Denies melena, Denies hematochezia, Denies change in bowel habits and Denies change in stool character Genitourinary: Genitourinary: Denies hematuria, Denies urinary frequency, Denies dysuria, Denies urinary incontinence, Denies urinary hesitancy and Denies urinary urgency Musculoskeletal: Musculoskeletal: Reports no additional musculoskeletal complaints, Denies numbness and Denies tingling Neurologic: Denies dizziness, Denies loss of vision, Denies numbness and Denies tingling Psychiatric: Psychiatric: Reports no additional psychiatric complaints Endocrine: Endocrine: Reports no additional endocrine complaints Hematologic/Lymphatic: Hematologic/Lymphatic: Reports no additional hematologic/lymphatic complaints Allergic/Immunologic: Allergic/Immunologic: Reports no additional allergic/immunologic complaints PMFSH Past Medical History Attestation statement: The following information was validated with the patient. 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 Maternal Grandmother Breast cancer Maternal Aunt Breast cancer Brother No problems noted. Brother No problems noted. Brother No problems noted. Sister No problems noted. Social History Social History Housing: House Alcohol intake: current Alcohol intake frequency: holidays/special occasions only Patient Tobacco Use Status: Former Tobacco user e-Cigarette/Vaping Use: Never Used Second Hand Smoke Exposure: No Advance Directives: No Advance Directives Information Provided: Yes Do you have a plan to hurt others: No Plan service: Yes Current occupational status: employed and retired Current occupation: [email or web address] Cognitive needs: No Hearing needs: No Vision needs: Yes (reading glasses) Physical Exam ED Vital Signs: Vital Signs - 24 hr 02/28/24 14:22 02/28/24 17:26 Temperature 98.2 F 98.2 F Pulse Rate 65 60 Respiratory Rate 16 16 Blood Pressure 108/70 112/59 L Pulse Oximetry 98 100 Oxygen Delivery Method Room Air Room Air BMI result Body Mass Index 22.8 Const General: cooperative, no acute distress, alert and awake Nutritional Appearance: well nourished Orientation/consciousness: patient oriented x3 Limitations: no limitations HENMT Head: Yes normal to inspection and Yes atraumatic Ears: hearing grossly normal bilaterally and external ears normal General nose exam: Normal external nose present, no nasal discharge noted and no epistaxis Face and sinus: Yes normal facial exam, No abrasion and No laceration Mouth: Normal oral and palatal mucosa present, no drooling and no muffled voice Eyes General: appearance normal, both eyes and all related structures Periorbital: periorbital findings normal Eyelids: Yes eyelids normal Conjunctivae: conjunctivae normal Pupils: Equal, round and reactive pupils present EOM: EOMs intact bilaterally Neck Neck: Yes normal visual inspection, Yes full ROM and Yes no lymphadenopathy Chest Chest palpation & inspection: normal inspection of the chest Resp Effort & Inspection: normal respiratory effort and able to speak in complete sentences GI Inspection: Yes normal to inspection Neuro General: patient oriented x3 and moves all extremities Cranial nerves: Yes Equal, round and reactive pupils present Cognition (Neuro): normal cognition Extrem General: Yes normal to inspection, Yes full ROM and Yes capillary refill normal Psych Appearance: grossly normal Mental Status: mental status grossly normal Affect: normal affect Attitude: cooperative Thought process: Normal thought process present Thought content: Normal thought content present Insight: Good insight present (Psych) Course Course Course Narrative: RME performed by Humera Carmichael PA-C. Patient is a 58 year old assigned female at presenting to the emergency department with dizziness post accidental ingestion of gel from a refreezable ice pack. Patient states she was eating out of a refreezable container when she accidentally ingested some of the gel within it. Patient states that she has felt dizzy since then. Detailed physical exam and review of systems are deferred to the orthotic/prosthetic clinician. Labs ordered. Patient placed back in the waiting room pending room availability and results. Medical Decision Making Medical Decision Making MDM Narrative: Patient is a 58 year old assigned female at with a history of breast CA presenting to the emergency department today after accidental ingestion. Patient's physical exam was unremarkable. Patient's blood work was unremarkable. I explained my physical exam findings as well as all test results to the patient. I answered all questions asked by the patient. I stressed the importance of the patient taking her medication as directed (either prescribed or as the over the counter packaging recommends). I stressed the importance of the patient following up with her primary care provider. I stressed the importance of the patient returning to the emergency department immediately if her symptoms were to worsen or if she were to develop any dizziness, shortness of breath, difficulty breathing, chest pain, blurry vision, loss of vision, nausea, vomiting, abdominal pain, fever, chills, back pain, or any other complaints. Patient verbalized agreement and understanding with this treatment plan and discharge. Differential Diagnosis Differential Diagnoses: The differential diagnosis associated with the presentation includes Gastroenteritis Accidental ingestion Admission/Observation Consideration of admission/observation: Escalation of care including admission/observation considered Patient would have been admitted to the hospital had her work up had any findings where hospital admission was appropriate and her clinical presentation warranted hospital admission. Lab Data [facility] Lab Attestation statement: I reviewed the patient's lab results. My interpretation of these results are in the MDM Rationale portion of this note. 02/28/24 14:42 02/28/24 14:42 Labs: Lab Results 02/28/24 Range/Units 14:42 WBC 5.4 (4.8-10.8) X10*3/uL RBC 4.20 (4.20-5.50) X10*6/uL Hgb 13.0 (12.0-16.0) g/dl Hct 37.8 (37.0-47.0) % MCV 90.0 (80.0-98.0) fL MCH 31.0 (27.0-33.0) pg MCHC 34.4 (31.0-35.0) g/dl RDW 13.4 (11.0-16.0) % Plt Count 235 (160-400) X10*3/uL MPV 9.6 (9.4-12.3) fL Immature Gran % (Auto) 0.2 (0.0-0.4) % Neut % (Auto) 50.0 (45-73) % Lymph % (Auto) 39.1 (20-40) % Spencer % (Auto) 8.6 (2-11) % Eos % (Auto) 1.7 (0-4) % Baso % (Auto) 0.4 (0-2) % Lymph # (Auto) 2.1 (1.2-4.9) X10*3/uL Spencer # (Auto) 0.5 (0.1-1.2) X10*3/uL Eos # (Auto) 0.1 (0.0-0.4) X10*3/uL Baso # (Auto) 0.0 (0.0-0.2) X10*3/uL Abs Immat Gran (auto) 0.01 (0.00-0.03) X10*3/uL Absolute Neuts (auto) 2.7 (2.0-8.3) x10*3/uL Absolute Nucleated RBC 0.000 (0.0-0.012) X10*3/uL Nucleated RBC % (auto) 0.0 (0.0-0.2) /100WBC Sodium 143 (135-145) mmol/L Potassium 4.8 (3.3-5.1) mmol/L Chloride 107 (96-108) mmol/L Carbon Dioxide 30 H (22-29) mmol/L Anion Gap 11 L (12-20) BUN 16 (9-16) mg/dL Creatinine 0.74 (0.5-1.4) mg/dL Estim Creat Clear Calc 73.3 Estimated GFR > 60 Random Glucose 103 (60-115) mg/dL Calcium 10.4 H D (8.4-10.2) mg/dL Magnesium 2.3 (1.6-2.6) mg/dL Total Bilirubin 0.3 (0.0-1.0) mg/dL AST 28 (5-31) U/L ALT 26 (0-31) U/L Alkaline Phosphatase 63 (39-117) U/L Total Protein 7.4 (6.5-8.0) g/dL Albumin 4.4 (3.5-5.0) g/dL Discharge Plan Discharge Clinical Impression: Gastroenteritis Patient Disposition: Home, Self-Care Instructions: Gastroenteritis (DC) Additional Instructions: Follow up with your primary care provider. Return to the emergency department immediately if your symptoms worsen or if you develop any dizziness, shortness of breath, difficulty breathing, chest pain, blurry vision, loss of vision, nausea, vomiting, abdominal pain, fever, chills, back pain, or any other complaints. Prescriptions: No Action tamoxifen 20 mg tablet 20 mg PO DAILY azelastine 137 mcg (0.1 %) aerosol,spray intranasal Tyrvaya 0.03 mg/spray spray, metered, non-aerosol 1 spray intranasal Q12H Rx Instructions: administer into each nostril zolpidem 10 mg tablet 10 mg PO BEDTIME PRN (Reason: insomnia) Qty: 30 0RF meloxicam 15 mg tablet 15 mg PO DAILY multivitamin Tablet 1 tab PO DAILY Referrals: Juliette Altman MD [Primary Care Provider] - Interventions: ED Discharge Assessment Last Done: 02/28/24 17:26 Discharge Date/Time: 02/28/24 17:27 Print Language: Nepali
[2024-02-28 14:52] LABS: MANUAL DIFF FLAG NO
[2024-02-28 14:53] LABS: Basophils Percent Auto 0.4 % (0-2); Eosinophils Absolute Auto 0.1 X10*3/uL (0.0-0.4); Eosinophils Percent Auto 1.7 % (0-4); Hematocrit 37.8 % (37.0-47.0); Imm Gran Abs Auto 0.01 X10*3/uL (0.00-0.03); Imm Gran Pct Auto 0.2 % (0.0-0.4); Lymphocytes Absolute Auto 2.1 X10*3/uL (1.2-4.9); Lymphocytes Percent Auto 39.1 % (20-40); Mean Corpuscular HGB Conc 34.4 g/dl (31.0-35.0); Mean Platelet Volume 9.6 fL (9.4-12.3); Monocytes Absolute Auto 0.5 X10*3/uL (0.1-1.2); Monocytes Percent Auto 8.6 % (2-11); Neutrophils Absolute Auto 2.7 x10*3/uL (2.0-8.3); Platelet Count 235 X10*3/uL (160-400); Red Cell Distribution Width 13.4 % (11.0-16.0); White Blood Count 5.4 X10*3/uL (4.8-10.8)
[2024-02-28 15:07] LABS: Alanine Aminotransferase 26 U/L (0-31); Albumin Level 4.4 g/dL (3.5-5.0); Alkaline Phosphatase 63 U/L (39-117); Anion Gap 11 (12-20); Aspartate Amino Transferase 28 U/L (5-31); Bilirubin Total 0.3 mg/dL (0.0-1.0); Blood Urea Nitrogen 16 mg/dL (9-16); Calcium 10.4 mg/dL (8.4-10.2); Carbon Dioxide 30 mmol/L (22-29); Chloride 107 mmol/L (96-108); Creatinine Clr Calc Pharmacy 73.3; Estimated Glomerular Filt Rate > 60; Glucose Random 103 mg/dL (60-115); Magnesium 2.3 mg/dL (1.6-2.6); Potassium 4.8 mmol/L (3.3-5.1); Sodium 143 mmol/L (135-145); Total Protein 7.4 g/dL (6.5-8.0)
[2024-02-28 17:26] VITALS: BP 112/59; PULSE 60; RESP 16; TEMP 36.8; O2SAT 100
== END 2024-02-28 17:27 | disposition home or self-care (01) ==
PROVIDERS: Physician Assistant Medical; Emergency Provider Internal Medicine; PCP Internal Medicine
DX: K52.9 Noninfective gastroenteritis and colitis, unspecified (principal); Z79.899 Other long term (current) drug therapy
CPT/HCPCS: 36415; 80053; 83735; 85025; 99282; 99283

== ENCOUNTER 2024-05-17 08:42 | Outpatient (AMB) | payer OTHER, SELFPAY ==
[2024-05-17 08:45] VITALS: BP 102/72; PULSE 79; O2SAT 100; BMI 23.0
--- NOTE | 2024-05-17 08:45 | A.OFFPC_ITS ---
Vital Signs 05/17/24 08:45 Height 5 ft 4 in Weight 134 lb BMI 23.0 BP 102/72 Blood Pressure Location Rt radial Position Supine Pulse 79 Pulse Source Pulse Oximeter Pulse Oximetry (%) 100 Oxygen Delivery Method Room Air Comment sitting 120/70 Rt arm Pulse 70, standing 102/74 Pulse 71 Intake Visit Reasons: dizziness Intake Note: Pt is here today c/o dizziness Allergies Penicillins [PENICILLINS] Allergy (Severe, Verified 05/17/24 09:23) ANAPHYLAXIS strawberry [STRAWBERRY] Allergy (Intermediate, Verified 05/17/24 09:23) LIP TINGLING, HIVES tea tree [TEA TREE] Allergy (Intermediate, Verified 05/17/24 09:23) RASH cephalexin [Keflex] Allergy (Unknown, Verified 05/17/24 09:23) dizziness neomycin [From Neosporin ([id number])] Allergy (Unknown, Verified 05/17/24 09:23) Rash, bumps lactose [LACTOSE] Adverse Reaction (Severe, Verified 05/17/24 09:23) DIARRHEA BANDAIDS Allergy (Severe, Uncoded 05/17/24 09:23) RASH Environmental Allergy (Mild, Uncoded 05/17/24 09:23) Cough,sneezing runny nose Medication List - Last Reconciled 05/17/24 by Juliette Altman MD azelastine intranasal zolpidem 10 mg PO BEDTIME PRN Tobacco use date assessed: 05/17/24 Dental Screening Dental Screen Date: 05/17/24 Did you have a dental visit in the last 12 months?: Yes Did you have a dental problem in the last 6 months where you did not have access to dental care?: Yes Was dental information given to patient?: Patient has dentist HPI dizziness HPI Details 59-year-old lady here today complaining of having intermittent episodes of dizziness which last only several seconds, occurs several times during the day, started on and off for the last several weeks and has been occurring more frequently.. Patient states this only happens when she is staying still or resting, does not experience any dizziness when she is running, doing gardening yard work, playing golf or when doing any form of activity. She went to the ER recently with the above complaint, and workup all came back negative which includes labs, EKG. At present patient states that she has been experiencing these episodes of sudden dizziness on and off 4-5 times already during this visit. Resolved spontaneously, no complaints of any chest pain, shortness of breath, palpitations, no lightheadedness. 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 Maternal Grandmother Breast cancer Maternal Aunt Breast cancer Brother No problems noted. Brother No problems noted. Brother No problems noted. Sister No problems noted. Social History Housing: House Alcohol intake: current Alcohol intake frequency: holidays/special occasions only Patient Tobacco Use Status: Former Tobacco user e-Cigarette/Vaping Use: Never Used Second Hand Smoke Exposure: No service: Yes Current occupational status: employed and retired Current occupation: [employer] Cognitive needs: No Hearing needs: No Vision needs: Yes (reading glasses) Questionnaire PHQ-9 Over the last 2 weeks, how often have you been bothered by any of the following problems? 1. Little interest or pleasure in doing things: not at all 2. Feeling down, depressed, or hopeless: not at all 3. Trouble falling or staying asleep, or sleeping too much: not at all 4. Feeling tired or having little energy: several days 5. Poor appetite or overeating: not at all 6. Feeling bad about yourself - or that you are a failure or have let yourself or your family down: not at all 7. Trouble concentrating on things, such as reading the newspaper or watching television: not at all 8. Moving or speaking so slowly that other people could have noticed. Or the opposite - being so fidgety or restless that you have been moving around a lot more than usual: not at all 9. Thoughts that you would be better off or of hurting yourself in some way: not at all Total score: 1 Depression Screening Interpretation: Negative Depression Screening Done: Yes 52721 - PHQ-9 Billing: Yes Source: Developed by Drs. Steven Santiago, Bell Keating, Rowdy Cuello and colleagues, with an educational emma from [employer]. Thrive Questionnaire Date Thrive assessed: 05/17/24 I am a: Patient What is your living situation today?: I have a steady place to live Within the past 12 months, did the food you bought not last and you didn't have the money to get more?: Never true Within the past 12 months, did you worry whether your food would run out before you got money to buy more?: Never true Do you have trouble paying for medicines?: No Do you have trouble getting transportation to medical appointments?: No Do you have trouble paying your heating and electricity bill?: No Do you have trouble taking care of your child, family member or friend?: No Do you have trouble with day-to-day activities such as bathing, preparing meals, shopping, managing finances, etc.?: No Are you currently unemployed and looking for a job?: No Are you interested in more education?: No Please select the resources that you would like help with: None Currently or been in a relationship where the following occur: No concerns reported THRIVE Score: 0 AUDIT C Alcohol Use Questionnaire (AUDIT-C) 1. How often do you have a drink containing alcohol?: Monthly or less 2. How many drinks containing alcohol do you have on a typical day when you are drinking?: 1 or 2 3. How often do you have six or more drinks on one occasion?: Never Total Score: 1 BERNY-7 AMB Questionnaire BERNY-7 Date BERNY - 7 assessed: 09/02/23 Feeling nervous, anxious, or on edge: 0 = Not at all Not being able to stop or control worryin = Not at all Worrying too much about different things: 0 = Not at all Trouble relaxin = Not at all Being so restless that it is hard to sit still: 0 = Not at all Becoming easily annoyed or irritable: 0 = Not at all Feeling afraid as if something awful might happen: 0 = Not at all Total BERNY-7 score (0-4 normal; 5-9 mild; 10-14 moderate; 15-21 severe): 0 Source: Developed by Drs. Steven Santiago, Bell Keating, Rowdy Cuello and colleagues, with an educational emma from [employer]. BERNY-7 Assessment Billing BERNY-7 Assessment Tool: BERNY-7 Assessment 84169 Review of Systems Const All systems reviewed & are unremarkable except as noted in HPI and below Physical exam (Primary Care) Vital Signs: Last Vital Signs Pulse 79 05/17/24 08:45 BP 102/72 05/17/24 08:45 Pulse Ox 100 05/17/24 08:45 Oxygen Delivery Method Room Air 05/17/24 08:45 BMI result Body Mass Index 23.0 Tobacco/Smoking Status: Tobacco use Status Tobacco use date assessed 05/17/24 05/17/24 08:47 Patient Tobacco Use Status Former Tobacco user 05/17/24 08:47 e-Cigarette/Vaping Use Never Used 05/17/24 08:47 PHQ-9: PHQ-9 Score PHQ-9: Total score 1 05/17/24 10:00 Depression Screening Interpretation: Negative Thrive Assessment: Date of Thrive Assessment Date Thrive assessed 05/17/24 05/17/24 08:47 Currently or been in a relationship where the following occur: No concerns rep orted Const General: healthy appearing, comfortable and no acute distress Nutritional Appearance: average body habitus Orientation/consciousness: patient oriented x3 Limitations: no limitations HENMT Head: Yes normocephalic and Yes atraumatic Ears: hearing grossly normal bilaterally, TM's normal bilaterally and EAC's normal General nose exam: Normal external nose present Face and sinus: Yes face symmetric Mouth: Normal oral and palatal mucosa present and moist mucous membranes Eyes General: appearance normal, both eyes and all related structures Neck Neck: Yes full ROM, Yes no lymphadenopathy and Yes supple Resp Effort & Inspection: normal respiratory effort and able to speak in complete sentences Auscultation: clear to auscultation bilaterally Cardio Rate: regular rate Rhythm: regular rhythm Heart sounds: S1 normal heart sound present and S2 normal heart sound present GI Inspection: Yes normal to inspection Auscultation: normal bowel sounds Other: sees BS OB for yearly pap /pelvic exam General: Yes no CVA tenderness Back/Spine/Pelvis Back: no CVA tenderness and No back tenderness Skin General skin exam: no rashes or lesions noted Neuro General: patient oriented x3, gait normal, tone normal, moves all extremities, no focal motor deficits and CN's II-XI intact bilaterally Extrem General: Yes full ROM, Yes no joint enlargement and Yes no pedal edema Psych Appearance: grossly normal and well kempt Mental Status: mental status grossly normal Speech and movement: Normal speech and movement present Affect: normal affect Attitude: cooperative Thought process: Normal thought process present Thought content: Normal thought content present Coding Level of Care Code Est Pt Level 3 (67898) Diagnoses Intermittent lightheadedness R42 Intermittent palpitations R00.2 Elevated vitamin B12 level R79.89 Additional Codes PHQ-9 - 87411 - PHQ-9 Billing: Yes ([id number]) BERNY-7 Assessment Billing - BERNY-7 Assessment Tool: BERNY-7 Assessment 35446 ([id number]) Assessment & Plan Assessment & Plan (1) Intermittent lightheadedness: Code(s): R42 - Dizziness and giddiness Category: Medical Plan: Ordered ultrasound of bilateral carotids, EKG done today showed normal sinus rhythm with no acute ST-T changes, no PVCs. Ordered TSH with free T4 levels, complete blood count, vitamin B12 and folic acid and basic metabolic panel (2) Intermittent palpitations: Code(s): R00.2 - Palpitations Category: Medical Plan: EKG came back within normal limits, ordered bilateral carotid ultrasound, TSH and free T4 level, CBC, basic metabolic panel, vitamin B12 and vitamin-D level. Cardiology consult also ordered (3) Elevated vitamin B12 level: Code(s): R79.89 - Other specified abnormal findings of blood chemistry Plan: Repeat vitamin B12 level ordered Orders: Orders Complete Blood Count Auto Diff Today R00.2 - Palpitations, R42 - Dizziness and giddiness TSH reflex Free T4 Today R00.2 - Palpitations, R42 - Dizziness and giddiness Vitamin B12 and Folate Today R79.89 - Other specified abnormal findings of blood chemistry, Z78.0 - Asymptomatic menopausal state Vitamin D 25-OH Total Today R79.89 - Other specified abnormal findings of blood chemistry, Z78.0 - Asymptomatic menopausal state US carotid duplex BI Today R42 - Dizziness and giddiness Basic Metabolic Panel Fasting Today R00.2 - Palpitations, R42 - Dizziness and giddiness Referrals Cardiology Referral R00.2 - Palpitations, R42 - Dizziness and giddiness
== END 2024-05-17 12:18 | disposition home or self-care (01) ==
PROVIDERS: PCP Internal Medicine; Visit Provider Internal Medicine
DX: R42 Dizziness and giddiness (principal); R00.2 Palpitations; R79.89 Other specified abnormal findings of blood chemistry

== ENCOUNTER → 2024-05-17 08:42 | Outpatient (BNVA) | payer OTHER, SELFPAY | PROVIDERS: PCP Internal Medicine; Visit Provider Internal Medicine | DX: R42 Dizziness and giddiness (principal); R00.2 Palpitations; R79.89 Other specified abnormal findings of blood chemistry | CPT/HCPCS: 96127; 99212 ==

== ENCOUNTER 2024-05-18 09:00 | Outpatient (REF) | payer OTHER, SELFPAY ==
[2024-05-18 09:15] LABS: MANUAL DIFF FLAG NO
[2024-05-18 09:33] LABS: Basophils Percent Auto 0.4 % (0-2); Eosinophils Absolute Auto 0.1 X10*3/uL (0.0-0.4); Hematocrit 39.8 % (37.0-47.0); Hemoglobin 13.5 g/dl (12.0-16.0); Imm Gran Abs Auto 0.01 X10*3/uL (0.00-0.03); Imm Gran Pct Auto 0.2 % (0.0-0.4); Lymphocytes Absolute Auto 2.1 X10*3/uL (1.2-4.9); Lymphocytes Percent Auto 45.3 % (20-40); Mean Corpuscular HGB Conc 33.9 g/dl (31.0-35.0); Mean Corpuscular Hemoglobin 30.8 pg (27.0-33.0); Mean Corpuscular Volume 90.7 fL (80.0-98.0); Mean Platelet Volume 9.6 fL (9.4-12.3); Monocytes Absolute Auto 0.4 X10*3/uL (0.1-1.2); Monocytes Percent Auto 9.1 % (2-11); Platelet Count 271 X10*3/uL (160-400); Red Blood Count 4.39 X10*6/uL (4.20-5.50); Red Cell Distribution Width 12.9 % (11.0-16.0); White Blood Count 4.6 X10*3/uL (4.8-10.8)
[2024-05-18 10:06] LABS: Anion Gap 10 (12-20); Blood Urea Nitrogen 18 mg/dL (9-16); Calcium 9.5 mg/dL (8.4-10.2); Carbon Dioxide 31 mmol/L (22-29); Chloride 107 mmol/L (96-108); Estimated Glomerular Filt Rate > 60; Glucose Fasting 93 mg/dL (60-99); Potassium 4.5 mmol/L (3.3-5.1); Sodium 143 mmol/L (135-145)
[2024-05-18 10:24] LABS: TSH reflex Free T4 1.18 uIU/mL (0.32-4.0); Vitamin D 25-OH Total 48.6 ng/mL (>30)
[2024-05-18 10:46] LABS: Folate 13.7 ng/mL (> or = 4.0); Vitamin B12 725 pg/mL (200-900)
== END 2024-05-18 09:01 | disposition home or self-care (01) ==
LOC: HO.LAB 09:00
PROVIDERS: PCP Internal Medicine; Visit Provider Internal Medicine
DX: R00.2 Palpitations (principal); R79.89 Other specified abnormal findings of blood chemistry; R42 Dizziness and giddiness; Z78.0 Asymptomatic menopausal state
CPT/HCPCS: 36415; 80048; 82306; 82607; 82746; 84443; 85025

== ENCOUNTER 2024-05-29 10:18 | Outpatient (REF) | payer OTHER, SELFPAY ==
--- NOTE | ~2024-05-29 | US_ITS ---
EXAMINATION: US EXTRACRANIAL CAROTID DUPLEX, BILATERAL CLINICAL INFORMATION: Dizziness and giddiness. COMPARISON: None available. TECHNIQUE: Real-time ultrasound and Doppler techniques (integrating B-mode 2-D vascular images, Doppler spectral analysis and color-flow Doppler imaging) were utilized to interrogate the extracranial carotid arteries, the vertebral arteries and proximal subclavian arteries bilaterally. The degree of stenosis is determined by criteria similar to NASCET. FINDINGS: Right Side: 1. There is no significant atherosclerotic plaque seen in the bifurcation/proximal ICA region. 2. The common carotid artery PSV proximally is 97 cm/s and distally 87 cm/s. 3. The proximal internal carotid artery velocities are 101 cm/s systolic and 36 cm/s diastolic. 4. The proximal external carotid artery PSV is 86 cm/s. 5. The vertebral artery shows antegrade flow. 6. The subclavian artery waveforms are normal. Left Side: 1. There is no significant atherosclerotic plaque seen in the bifurcation/proximal ICA region. 2. The common carotid artery PSV proximally is 107 cm/s and distally 86 cm/s. 3. The proximal internal carotid artery velocities are 107 cm/s systolic and 25 cm/s diastolic. 4. The proximal external carotid artery PSV is 109 cm/s. 5. The vertebral artery shows antegrade flow. 6. The subclavian artery waveforms are normal. US/US carotid duplex BI IMPRESSION: 1. Right: Normal right internal carotid artery without atherosclerotic plaque or hemodynamically significant stenosis. 2. Left: Normal left internal carotid artery without atherosclerotic plaque or hemodynamically significant stenosis. Electronically signed by: Cliff Monzon MD 06/01/2024 11:53 AM EST
== END 2024-05-29 10:19 | disposition home or self-care (01) ==
LOC: HO.US 10:18
PROVIDERS: PCP Internal Medicine; Visit Provider Internal Medicine
DX: R42 Dizziness and giddiness (principal)
CPT/HCPCS: 93880

== ENCOUNTER → 2024-06-13 12:17 | Outpatient (BNVA) | payer OTHER, SELFPAY | PROVIDERS: PCP Internal Medicine; Visit Provider Nurse Practitioner Family | DX: B37.0 Candidal stomatitis (principal) | CPT/HCPCS: 99212 ==

== ENCOUNTER → 2024-06-13 12:17 | Outpatient (AMB) | payer OTHER, SELFPAY ==
--- NOTE | 2024-06-13 12:26 | AM.OFFWIN_ITS ---
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 Is last menstrual period known: No Post menopausal: No Patient : No Allergies Penicillins [PENICILLINS] Allergy (Severe, Verified 06/13/24 12:30) ANAPHYLAXIS strawberry [STRAWBERRY] Allergy (Intermediate, Verified 06/13/24 12:30) LIP TINGLING, HIVES tea tree [TEA TREE] Allergy (Intermediate, Verified 06/13/24 12:30) RASH cephalexin [Keflex] Allergy (Unknown, Verified 06/13/24 12:30) dizziness neomycin [From Neosporin ([id number])] Allergy (Unknown, Verified 06/13/24 12:30) Rash, bumps lactose [LACTOSE] Adverse Reaction (Severe, Verified 06/13/24 12:30) DIARRHEA BANDAIDS Allergy (Severe, Uncoded 05/17/24 09:23) RASH Environmental Allergy (Mild, Uncoded 05/17/24 09:23) Cough,sneezing runny nose Do you need a note to return to daycare/school/sports/work: No HPI HPI Comments History of Present Illness Details The patient is a 59-year-old female presenting with symptoms consistent with oral candidiasis. She reports that the symptoms began a few days after Thanksgiving, following the consumption of an old wine and remelted crystallized honey. The patient describes a burning sensation in the mouth and the presence of sores on the tongue and the roof of the mouth. 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 Initially, saltwater rinses provided relief, but the symptoms returned. Notably, the patient completed a regimen of tamoxifen in December after a five-year plan. She currently takes a multivitamin and calcium with vitamin D. The oral candidiasis presents as a white patch and the patient experiences taste disturbances and burning sensations, especially after using Listerine or consuming acidic foods like salad dressing. She reports improvement with saltwater rinses, although an exacerbation occurred recently. 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 Maternal Grandmother Breast cancer Maternal Aunt Breast cancer Brother No problems noted. Brother No problems noted. Brother No problems noted. Sister No problems noted. Social History Housing: House Alcohol intake: current Alcohol intake frequency: holidays/special occasions only Patient Tobacco Use Status: Former Tobacco user e-Cigarette/Vaping Use: Never Used Second Hand Smoke Exposure: No Patient : No service: Yes Current occupational status: employed and retired Current occupation: Legal [employer] Cognitive needs: No Hearing needs: No Vision needs: Yes (reading glasses) Review of Systems Const Details: Denies chills, Denies fatigue, Denies fever(s), Denies headache(s) and Denies weakness Cardiac Denies chest pain, Denies claudication, Denies leg edema, Denies lightheadedness, Denies palpitations, Denies dyspnea, Denies dyspnea on exertion, Denies orthopnea and Denies other (Loss of consciousness) Resp Denies cough, Denies excessive phlegm production, Denies dyspnea, Denies dyspnea on exertion, Denies snoring and Denies wheezing ENT Reports as per [facility] Physical Exam Vital Signs: Last Vital Signs Temp 98.4 F 06/13/24 12:33 Pulse 66 06/13/24 12:33 Resp 16 06/13/24 12:33 BP 98/55 L 06/13/24 12:33 Pulse Ox 100 12/10/24 12:33 Oxygen Delivery Method Room Air 12/10/24 12:33 BMI result Body Mass Index 22.8 Const Other: General: comfortable and no acute distress Orientation/consciousness: patient oriented x3 Chest Chest palpation & inspection: normal inspection of the chest Resp Auscultation: clear to auscultation bilaterally Cardiac Palpation: normal PMI Heart sounds: S1 normal heart sound present, S2 normal heart sound present, no gallops, no murmur, no rubs ENT Presence of white patches on the tongue and mouth examined Assessment & Plan Assessment & Plan (1) Oral candidiasis: Code(s): B37.0 - Candidal stomatitis Plan: - Prescribed Nystatin oral suspension for swishing and swallowing as a localized treatment. - Monitor progress with Nystatin; advised to report worsening or inadequate response. - Continuous use of saltwater rinses recommended as an adjunctive measure. - For TMJ: No changes in current management; continue current practices with mouthguard. Plan I discussed the management of oral candidiasis with the patient, emphasizing the use of Nystatin oral suspension for targeted treatment. I reviewed potential causes, including dry mouth and prior antibiotic or steroid use. We focused on localized treatment to avoid systemic therapy unless necessary. Follow-up was recommended if symptoms did not improve. I indicated that the issue appears mild at this time, and I provided reassurance about the expected efficacy of the Nystatin treatment. Medications: New nystatin swish and swallow. May use for an additional 7 days to equal 14 days 5 mL PO QID 7 days 140 mL 0RF Patient Instructions: - Begin Nystatin oral suspension as instructed: swish and swallow. - Continue saltwater rinses three to four times daily. - Monitor symptoms and report any worsening or lack of improvement. - Maintain adequate hydration. - Avoid oral irritants, such as alcohol-based mouthwashes and acidic foods. Patient was informed and verbally consented to the use of an ambient scribe for clinic note documentation during this visit. Coding Level of Care Code Est Pt Level 3 (00454) Diagnoses Oral candidiasis B37.0
[2024-06-13 12:33] VITALS: BP 98/55; PULSE 66; RESP 16; TEMP 36.9; O2SAT 100; BMI 22.8
== END ==
LOC: HO.HMCWIW 12:17
PROVIDERS: PCP Internal Medicine; Visit Provider Nurse Practitioner Family
DX: B37.0 Candidal stomatitis (principal)